=== PATIENT | female | born 1945 | race Caucasian/White ===

== ENCOUNTER 2018-03-30 06:18 | Inpatient (IN) | payer MEDICARE, BC ==
[2018-03-30] MEDS ORDERED: ALBUTEROL NEBULIZED 2.5 MG/3 ML INHALATION STA (07:07)
[2018-03-30] MEDS ORDERED: IPRATROPIUM 0.5 MG/2.5 ML NEBU INHALATION STA (07:07)
[2018-03-30] MEDS ORDERED: methylPREDNISolone SOD SUCCI 125 MG/2 ML VIAL IV STA (07:07)
[2018-03-30] MEDS ORDERED: LORazepam 2 MG/ML INJ IV STA ×2 (07:17→09:20)
[2018-03-30] MEDS ORDERED: LABETALOL SYRINGE 5 MG/ML IVP STA ×2 (07:17→09:02)
--- NOTE | 2018-03-30 07:36 | ED ---
General Adult HPI - General Source: patient, EMS, RN notes reviewed Mode of arrival: EMS Limitations: physical limitation <Jakub Gold - Last Filed: 03/30/18 09:20> <Augusto Green - Last Filed: 03/30/18 17:27> - General Chief complaint: Shortness of Breath Stated complaint: Difficulty Breathing Time Seen by Provider: 03/30/18 07:00 - History of Present Illness Initial comments: This is a 73-year-old female with past medical history significant for COPD. Patient states over the last week her sputum production has changed in color and she states it's a thicker greener sputum. Patient states she's been put on amoxicillin for this. Patient states her difficulty breathing is gotten worse since last night. Patient states she felt as though she needs to call EMS to come in because it got so bad this morning when she woke up. Patient states she had an albuterol treatment in route and it helped a lot. Patient denies any recent fever chills per patient denies any chest pain. Patient denies any abdominal pain patient denies nausea vomiting diarrhea. Patient denies lightheadedness dizziness or near syncopal episode. Patient denies any leg swelling or calf tenderness. (Jakub Gold) - Related Data Home Medications Medication Instructions Recorded Confirmed Metoprolol Tartrate [Lopressor] 25 mg PO BID 06/17/13 03/30/18 Montelukast [Singulair] 10 mg PO DAILY 06/17/13 03/30/18 Multivitamin [Multivitamins] 1 tab PO DAILY 06/17/13 03/30/18 ALPRAZolam [Xanax] 0.5 mg PO TID PRN 06/22/13 03/30/18 Naproxen Sodium [Aleve] 440 mg PO Q12HR 10/06/15 03/30/18 Amoxicillin 500 mg PO TID 03/30/18 03/30/18 Rosuvastatin [Crestor] 10 mg PO HS 03/30/18 03/30/18 Theophylline Anhydrous 400 mg PO DAILY 03/30/18 03/30/18 [Theophylline] methylPREDNISolone Dose Pack See Taper PO DAILY 03/30/18 03/30/18 [Medrol Dose Pack] Previous Rx's Medication Instructions Recorded Escitalopram [Lexapro] 10 mg PO DAILY tab 08/31/14 Acetaminophen Tab [Tylenol] 650 mg PO Q6HR PRN #0 tab 10/15/15 Allergies Allergy/AdvReac Type Severity Reaction Status Date / Time No Known Allergies Allergy Verified 03/30/18 08:37 Review of Systems ROS Other: All systems not noted in ROS Statement are negative. <Jakub Gold - Last Filed: 03/30/18 09:20> ROS Other: All systems not noted in ROS Statement are negative. <Augusto Green - Last Filed: 03/30/18 17:27> ROS Statement: Those systems with pertinent positive or pertinent negative responses have been documented in the HPI. Past Medical History Past Medical History: COPD, Hyperlipidemia, Hypertension, Respiratory Disorder Additional Past Medical History / Comment(s): Peripheral vascular disease, Raynaud's phenomena, chronic hyponatremia identified on previous hospitalization , chronic depression, chronic hypoxic respiratory failure on oxygen, generalized anxiety disorder History of Any Multi-Drug Resistant Organisms: None Reported Past Surgical History: Appendectomy, Tonsillectomy Additional Past Surgical History / Comment(s): Colonoscopy Past Anesthesia/Blood Transfusion Reactions: No Reported Reaction, Previous Problems w/ Anesthesia, Postoperative Nausea & Vomiting (PONV) Additional Past Anesthesia/Blood Transfusion Reaction / Comment(s): SLOW TO WAKE UP Past Psychological History: Anxiety, Depression Smoking Status: Former smoker Past Alcohol Use History: Abuse, Daily Past Drug Use History: Marijuana - Past Family History Father Family Medical History: Cancer Additional Family Medical History / Comment(s): Bladder cancer Mother Family Medical History: Congestive Heart Failure (CHF) Additional Family Medical History / Comment(s): Emphysema <Jakub Gold - Last Filed: 03/30/18 09:20> General Exam Limitations: physical limitation <Jakub Gold - Last Filed: 03/30/18 09:20> <Augusto Green - Last Filed: 03/30/18 17:27> - General Exam Comments Initial Comments: GENERAL: Patient is well-developed and well-nourished. Patient is nontoxic and well- hydrated and is in mild distress. ENT: Neck is soft and supple. No significant lymphadenopathy is noted. Oropharynx is clear. Moist mucous membranes. Neck has full range of motion without eliciting any pain. EYES: The sclera were anicteric and conjunctiva were pink and moist. Extraocular movements were intact and pupils were equal round and reactive to light. Eyelids were unremarkable. PULMONARY: Diminished breath sounds diffusely CARDIOVASCULAR: There is a regular rate and rhythm without any murmurs gallops or rubs. ABDOMEN: Soft and nontender with normal bowel sounds. No palpable organomegaly was noted. There is no palpable pulsatile mass. SKIN: Skin is clear with no lesions or rashes and otherwise unremarkable. NEUROLOGIC: Patient is alert and oriented x3. Cranial nerves II through XII are grossly intact. Motor and sensory are also intact. Normal speech, volume and content. Symmetrical smile. MUSCULOSKELETAL: Normal extremities with adequate strength and full range of motion. No lower extremity swelling or edema. No calf tenderness. LYMPHATICS: No significant lymphadenopathy is noted PSYCHIATRIC: Normal psychiatric evaluation. (Jakub Gold) Vital Signs 03/30/18 03/30/18 03/30/18 06:19 07:18 07:31 Temperature 99.1 F 98.6 F Pulse Rate 105 H 92 96 Respiratory 28 H 20 20 Rate Blood Pressure 212/111 195/105 O2 Sat by Pulse 96 100 Oximetry 03/30/18 03/30/18 03/30/18 08:06 09:01 10:00 Temperature Pulse Rate 98 100 92 Respiratory 22 20 18 Rate Blood Pressure 197/114 218/108 O2 Sat by Pulse 100 98 Oximetry 03/30/18 03/30/18 03/30/18 10:13 11:08 12:32 Temperature Pulse Rate 112 H 121 H Respiratory 18 24 Rate Blood Pressure 180/100 170/100 O2 Sat by Pulse 94 L Oximetry 03/30/18 03/30/18 03/30/18 12:33 12:46 13:06 Temperature Pulse Rate 121 H 123 H 126 H Respiratory 20 22 28 H Rate Blood Pressure 180/101 180/94 O2 Sat by Pulse 95 88 L Oximetry 03/30/18 03/30/18 03/30/18 13:40 14:06 14:47 Temperature Pulse Rate 124 H 126 H 130 H Respiratory 24 23 28 H Rate Blood Pressure 168/90 O2 Sat by Pulse 94 L Oximetry 03/30/18 03/30/18 03/30/18 15:29 15:45 16:30 Temperature Pulse Rate 130 H 126 H Respiratory 28 H 28 H Rate Blood Pressure 148/72 160/96 O2 Sat by Pulse 95 94 L 96 Oximetry Medical Decision Making - Lab Data Result diagrams: 03/30/18 06:25 03/30/18 06:25 <Jakub Gold - Last Filed: 03/30/18 09:20> - Lab Data Result diagrams: 03/30/18 06:25 03/30/18 06:25 <Augusto Green - Last Filed: 03/30/18 17:27> - Medical Decision Making EKG shows sinus tachycardia with occasional PVC at a rate of 102 bpm [place] interval 152 QRS is 68 QT interval 324 QTC is 424. Patient's EKG shows no ST segment elevation or depression or T wave abnormalities are noted. Patient received 3 breathing treatment to the emergency department as well as steroids and Ativan and also multiple medications for her high blood pressure. I went back into reexamine the patient she was still not moving much air. Patient at this point time told me that she also stopped drinking alcohol earlier in the week and she thinks she is withdrawing from lack of alcohol. I spoke with Dr. Piña and Dr. Piña agreed to admit the patient. (Jakub Gold ) Call received from Dr. Webber who states this patient sees Dr. Cunha and requests change of consultation. Dr. Mathis was called and he does request I make this change and it was so done. (Augusto Green) - Lab Data Lab Results 03/30/18 03/30/18 03/30/18 Range/Units 06:25 06:25 06:25 WBC 16.1 H (3.8-10.6) k/uL RBC 4.09 (3.80-5.40) m/uL Hgb 13.9 (11.4-16.0) gm/dL Hct 44.5 (34.0-46.0) % MCV 108.8 H (80.0-100.0) fL MCH 34.0 (25.0-35.0) pg MCHC 31.3 (31.0-37.0) g/dL RDW 12.9 (11.5-15.5) % Plt Count 376 (150-450) k/uL Neutrophils % 68 % Lymphocytes % 23 % Monocytes % 6 % Eosinophils % 1 % Basophils % 0 % Neutrophils # 11.0 H (1.3-7.7) k/uL Lymphocytes # 3.7 (1.0-4.8) k/uL Monocytes # 1.0 (0-1.0) k/uL Eosinophils # 0.1 (0-0.7) k/uL Basophils # 0.0 (0-0.2) k/uL Macrocytosis Moderate PT (9.0-12.0) sec INR (<1.2) APTT (22.0-30.0) sec Sodium 134 L (137-145) mmol/L Potassium 4.7 (3.5-5.1) mmol/L Chloride 90 L (98-107) mmol/L Carbon Dioxide 34 H (22-30) mmol/L Anion Gap 10 mmol/L BUN 20 H (7-17) mg/dL Creatinine 0.50 L (0.52-1.04) mg/dL Est GFR (CKD-EPI)AfAm >90 (>60 ml/min/1.73 sqM) Est GFR (CKD-EPI)NonAf >90 (>60 ml/min/1.73 sqM) Glucose 125 H (74-99) mg/dL Plasma Lactic Acid Jt (0.7-2.0) mmol/L Calcium 9.8 (8.4-10.2) mg/dL Total Bilirubin 0.8 (0.2-1.3) mg/dL AST 36 (14-36) U/L ALT 40 (9-52) U/L Alkaline Phosphatase 91 (38-126) U/L Total Creatine Kinase 23 L (30-135) U/L CK-MB (CK-2) 0.7 (0.0-2.4) ng/mL CK-MB (CK-2) Rel Index 3.0 Troponin I <0.012 (0.000-0.034) ng/mL NT-Pro-B Natriuret Pep pg/mL Total Protein 7.6 (6.3-8.2) g/dL Albumin 4.5 (3.5-5.0) g/dL 03/30/18 03/30/18 03/30/18 Range/Units 06:25 06:25 07:40 WBC (3.8-10.6) k/uL RBC (3.80-5.40) m/uL Hgb (11.4-16.0) gm/dL Hct (34.0-46.0) % MCV (80.0-100.0) fL MCH (25.0-35.0) pg MCHC (31.0-37.0) g/dL RDW (11.5-15.5) % Plt Count (150-450) k/uL Neutrophils % % Lymphocytes % % Monocytes % % Eosinophils % % Basophils % % Neutrophils # (1.3-7.7) k/uL Lymphocytes # (1.0-4.8) k/uL Monocytes # (0-1.0) k/uL Eosinophils # (0-0.7) k/uL Basophils # (0-0.2) k/uL Macrocytosis PT 9.5 (9.0-12.0) sec INR 0.9 (<1.2) APTT 22.2 (22.0-30.0) sec Sodium (137-145) mmol/L Potassium (3.5-5.1) mmol/L Chloride (98-107) mmol/L Carbon Dioxide (22-30) mmol/L Anion Gap mmol/L BUN (7-17) mg/dL Creatinine (0.52-1.04) mg/dL Est GFR (CKD-EPI)AfAm (>60 ml/min/1.73 sqM) Est GFR (CKD-EPI)NonAf (>60 ml/min/1.73 sqM) Glucose (74-99) mg/dL Plasma Lactic Acid Jt 0.8 (0.7-2.0) mmol/L Calcium (8.4-10.2) mg/dL Total Bilirubin (0.2-1.3) mg/dL AST (14-36) U/L ALT (9-52) U/L Alkaline Phosphatase (38-126) U/L Total Creatine Kinase (30-135) U/L CK-MB (CK-2) (0.0-2.4) ng/mL CK-MB (CK-2) Rel Index Troponin I (0.000-0.034) ng/mL NT-Pro-B Natriuret Pep 164 pg/mL Total Protein (6.3-8.2) g/dL Albumin (3.5-5.0) g/dL Critical Care Time Critical Care Time: Yes Total Critical Care Time: 35 <Jakub Gold - Last Filed: 03/30/18 09:20> Disposition Time of Disposition: 09:22 <Jakub Gold - Last Filed: 03/30/18 09:20> <Augusto Green - Last Filed: 03/30/18 17:27> Clinical Impression: Hypertensive urgency, COPD exacerbation, Bronchitis, Alcohol withdrawal Disposition: ADMITTED IP TO THIS HOSP
[2018-03-30 07:52] LABS: Basophils % (A) 0 %; Eosinophils # (A) 0.1 k/uL (0-0.7); Eosinophils % (A) 1 %; HCT 44.5 % (34.0-46.0); HGB 13.9 gm/dL (11.4-16.0); Lymphocytes # (A) 3.7 k/uL (1.0-4.8); Lymphocytes % (A) 23 %; MCHC 31.3 g/dL (31.0-37.0); MCV 108.8 fL (80.0-100.0); Macrocytosis Moderate; Mean Platelet Volume 8.1; Monocytes % (A) 6 %; Neutrophils % (A) 68 %; Platelet Count 376 k/uL (150-450); RBC 4.09 m/uL (3.80-5.40); RDW 12.9 % (11.5-15.5); WBC 16.1 k/uL (3.8-10.6)
[2018-03-30 08:01] LABS: ALT 40 U/L (9-52); AST 36 U/L (14-36); Albumin 4.5 g/dL (3.5-5.0); Alkaline Phosphatase 91 U/L (38-126); Anion Gap 10 mmol/L; Blood Urea Nitrogen 20 mg/dL (7-17); Calcium 9.8 mg/dL (8.4-10.2); Carbon Dioxide 34 mmol/L (22-30); Chloride 90 mmol/L (98-107); Glucose 125 mg/dL (74-99); Potassium 4.7 mmol/L (3.5-5.1); Sodium 134 mmol/L (137-145); Total Bilirubin 0.8 mg/dL (0.2-1.3); Total Protein 7.6 g/dL (6.3-8.2)
[2018-03-30 08:08] LABS: INR 0.9 (<1.2); Partial Thromboplastin Time 22.2 sec (22.0-30.0); Prothrombin Time 9.5 sec (9.0-12.0)
[2018-03-30 08:26] LABS: Creatine Kinase 23 U/L (30-135)
[2018-03-30 08:37] LABS: Creatine Kinase MB 0.7 ng/mL (0.0-2.4); Troponin I <0.012 ng/mL (0.000-0.034)
--- NOTE | 2018-03-30 08:37 | XR ---
EXAMINATION TYPE: XR chest 2V DATE OF EXAM: 03/30/2018 COMPARISON: 10/14/2015 INDICATION: Difficulty breathing TECHNIQUE: Frontal and lateral views of the chest are obtained. FINDINGS: The heart size is normal. The pulmonary vasculature is normal. The lungs are clear. There is hyperinflation and increased retrosternal airspace compatible COPD IMPRESSION: 1. No acute pulmonary process. 2. COPD
[2018-03-30] MEDS ORDERED: LABETALOL 5 MG/ML VIAL MDV IVP STA (09:02)
[2018-03-30] MEDS ORDERED: hydrALAZINE HCL 20 MG/ML 1 ML VIAL IVP STA ×2 (09:20→11:20)
[2018-03-30] MEDS ORDERED: LORazepam 2 MG/ML INJ IV PRN ×2 (09:24)
[2018-03-30] MEDS ORDERED: THIAMINE 100 MG/ML 2 ML VIAL IM STA (09:24)
[2018-03-30] MEDS ORDERED: AZITHROMYCIN 500 MG in SODIUM CHLORIDE 0.9% 250 ML IVPB STA (09:28)
[2018-03-30] MEDS: methylPREDNISolone SOD SUCCI 125 MG/2 ML VIAL IV SCH ×2 (12:29→20:17)
[2018-03-30] MEDS: LORazepam 2 MG/ML INJ IV PRN ×2 (12:31→21:51)
[2018-03-30] MEDS ORDERED: ACETAMINOPHEN TAB 325 MG TAB PO PRN (13:00)
[2018-03-30] MEDS ORDERED: hydrALAZINE HCL 20 MG/ML 1 ML VIAL IVP PRN (13:06)
--- NOTE | 2018-03-30 13:06 | P.HPIM ---
History of Present Illness H&P Date: 03/30/18 Chief Complaint: Shortness of breath 73-year-old female with past medical history significant for COPD. Patient states over the last week her sputum production has changed in color and she states it's a thicker greener sputum. Patient states she's been put on amoxicillin for this. Patient states her difficulty breathing is gotten worse since last night. Patient states she felt as though she needs to call EMS to come in because it got so bad this morning when she woke up. Patient states she had an albuterol treatment in route and it helped a lot. Patient denies any recent fever chills per patient denies any chest pain. Patient denies any abdominal pain patient denies nausea vomiting diarrhea. Patient denies lightheadedness dizziness or near syncopal episode. Patient denies any leg swelling or calf tenderness. Review of Systems Constitutional: Reports fatigue, Denies chills, Denies fever Eyes: denies blurred vision, denies loss of vision Ears, nose, mouth and throat: Denies headache, Denies nasal congestion Cardiovascular: Reports shortness of breath, Denies chest pain, Denies lightheadedness, Denies rapid heart beat Respiratory: Reports cough with sputum, Reports dyspnea, Reports wheezing, Denies hemoptysis Gastrointestinal: Denies abdominal pain, Denies nausea, Denies vomiting Genitourinary: Denies dysuria, Denies hematuria Integumentary: Denies darkening of skin, Denies rash Neurological: Denies confusion, Denies double vision Endocrine: Denies cold intolerance, Denies heat intolerance Past Medical History Past Medical History: COPD, Hyperlipidemia, Hypertension, Respiratory Disorder Additional Past Medical History / Comment(s): Peripheral vascular disease, Raynaud's phenomena, chronic hyponatremia identified on previous hospitalization , chronic depression, chronic hypoxic respiratory failure on oxygen, generalized anxiety disorder History of Any Multi-Drug Resistant Organisms: None Reported Past Surgical History: Appendectomy, Tonsillectomy Additional Past Surgical History / Comment(s): Colonoscopy Past Anesthesia/Blood Transfusion Reactions: No Reported Reaction, Previous Problems w/ Anesthesia, Postoperative Nausea & Vomiting (PONV) Additional Past Anesthesia/Blood Transfusion Reaction / Comment(s): SLOW TO WAKE UP Past Psychological History: Anxiety, Depression Smoking Status: Former smoker Past Alcohol Use History: Abuse, Daily Past Drug Use History: Marijuana - Past Family History Father Family Medical History: Cancer Additional Family Medical History / Comment(s): Bladder cancer Mother Family Medical History: Congestive Heart Failure (CHF) Additional Family Medical History / Comment(s): Emphysema Medications and Allergies Home Medications Medication Instructions Recorded Confirmed Type Metoprolol Tartrate [Lopressor] 25 mg PO BID 06/17/13 03/30/18 History Montelukast [Singulair] 10 mg PO DAILY 06/17/13 03/30/18 History Multivitamin [Multivitamins] 1 tab PO DAILY 06/17/13 03/30/18 History ALPRAZolam [Xanax] 0.5 mg PO TID PRN 06/22/13 03/30/18 History Escitalopram [Lexapro] 10 mg PO DAILY tab 08/31/14 03/30/18 Rx Naproxen Sodium [Aleve] 440 mg PO Q12HR 10/06/15 03/30/18 History Acetaminophen Tab [Tylenol] 650 mg PO Q6HR PRN #0 tab 10/15/15 03/30/18 Rx Amoxicillin 500 mg PO TID 03/30/18 03/30/18 History Rosuvastatin [Crestor] 10 mg PO HS 03/30/18 03/30/18 History Theophylline Anhydrous 400 mg PO DAILY 03/30/18 03/30/18 History [Theophylline] methylPREDNISolone Dose Pack See Taper PO DAILY 03/30/18 03/30/18 History [Medrol Dose Pack] Allergies Allergy/AdvReac Type Severity Reaction Status Date / Time No Known Allergies Allergy Verified 03/30/18 08:37 Physical Exam Vitals: Vital Signs Temp Pulse Resp BP Pulse Ox 03/30/18 12:46 123 H 22 03/30/18 12:33 121 H 20 180/101 95 03/30/18 12:32 121 H 24 03/30/18 11:08 112 H 18 170/100 94 L 03/30/18 10:13 180/100 03/30/18 10:00 92 18 218/108 98 03/30/18 09:01 100 20 197/114 100 03/30/18 08:06 98 22 03/30/18 07:31 96 20 03/30/18 07:18 98.6 F 92 20 195/105 100 03/30/18 06:19 99.1 F 105 H 28 H 212/111 96 Intake and Output 03/29/18 03/30/18 03/30/18 22:59 06:59 14:59 Other: Weight 74.843 kg GENERAL: Patient is well-developed and well-nourished. Patient is nontoxic and well- hydrated and is in mild distress. ENT: Neck is soft and supple. No significant lymphadenopathy is noted. Oropharynx is clear. Moist mucous membranes. Neck has full range of motion without eliciting any pain. EYES: The sclera were anicteric and conjunctiva were pink and moist. Extraocular movements were intact and pupils were equal round and reactive to light. Eyelids were unremarkable. PULMONARY: Diminished breath sounds diffusely CARDIOVASCULAR: There is a regular rate and rhythm without any murmurs gallops or rubs. ABDOMEN: Soft and nontender with normal bowel sounds. No palpable organomegaly was noted. There is no palpable pulsatile mass. SKIN: Skin is clear with no lesions or rashes and otherwise unremarkable. NEUROLOGIC: Patient is alert and oriented x3. Cranial nerves II through XII are grossly intact. Motor and sensory are also intact. Normal speech, volume and content. Symmetrical smile. MUSCULOSKELETAL: Normal extremities with adequate strength and full range of motion. No lower extremity swelling or edema. No calf tenderness. LYMPHATICS: No significant lymphadenopathy is noted Results CBC & Chem 7: 03/30/18 06:25 03/30/18 06:25 Labs: Abnormal Lab Results - Last 24 Hours (Table) 03/30/18 03/30/18 03/30/18 Range/Units 06:25 06:25 06:25 WBC 16.1 H (3.8-10.6) k/uL MCV 108.8 H (80.0-100.0) fL Neutrophils # 11.0 H (1.3-7.7) k/uL Sodium 134 L (137-145) mmol/L Chloride 90 L (98-107) mmol/L Carbon Dioxide 34 H (22-30) mmol/L BUN 20 H (7-17) mg/dL Creatinine 0.50 L (0.52-1.04) mg/dL Glucose 125 H (74-99) mg/dL Total Creatine Kinase 23 L (30-135) U/L Assessment and Plan Assessment: 1. Hypertensive urgency; possibly secondary to EtOH withdrawal - we will continue with home dose of Norvasc 5 mg daily and Toprol 25 mg twice a day - Add hydralazine 10 mg IV every 6 hours when necessary for systolic blood pressure greater than 160 2. COPD exacerbation/bronchitis - Start patient on Zithromax 500 mg by mouth daily along with ceftriaxone 1 g daily - Solu-Medrol 60 mg IV every 6 hours - Bronchodilator nebulizer treatments with DuoNeb every 4 hours when necessary - Continue with home dose of Singulair 10 mg daily along with theophylline 400 mg every 24 hours 3. Alcohol withdrawal - Patient is started on Ativan per [facility] protocol - Consult [employer] for discharge planning 4. Leukocytosis; possibly stress related - We will repeat CBC in the and initiate sepsis workup if remains elevated 5. Hyperlipidemia; reorder home dose of Crestor 10 mg daily at bedtime 6. DVT prophylaxis; subcu heparin CODE STATUS; full code
[2018-03-30] MEDS: IPRATROPIUM-ALBUTEROL 3 ML NEB INHALATION PRN ×2 (13:30→19:55)
[2018-03-30] MEDS ORDERED: BUDESONIDE 1 MG/2 ML NEBU INHALATION STA (13:37)
[2018-03-30] MEDS ORDERED: KETOROLAC 30 MG/ML 1 ML VIAL IVP PRN (14:25)
[2018-03-30 14:33] LABS: ABG Base Excess 7.7 mmol/L; ABG HCO3 34 mmol/L (21-25); ABG Oxygen Saturation 95.4 % (94-97); ABG PH 7.29 (7.35-7.45); ABG PO2 84 mmHg (83-108); ABG TCO2 37 mmol/L (19-24)
[2018-03-30 14:39] LABS: ABG PCO2 71 mmHg (35-45)
[2018-03-30] MEDS: PANTOPRAZOLE 40 MG/10 ML VIAL IVP SCH (14:43)
--- NOTE | 2018-03-30 18:13 | P.CNPUL ---
History of Present Illness Consult date: 03/30/18 Reason for consult: dyspnea, COPD History of present illness: This is a 73-year-old female patient who follows with Dr. Way as her primary care physician. She has a past medical history of chronic hypoxic respiratory failure requiring oxygen 10/09, chronic obstructive pulmonary disease, end-stage with an FEV1 value of 15% , hypertension, anxiety/depression, immunoglobulin deficiency with previous IVIG treatments, peripheral vascular disease, renal disease. This patient has a maintained on oxygen on a chronic basis, Milligrams of Prednisone a Daily Basis, Theophylline 400 Mg on a Daily Basis and She's Been Utilizing a BiPAP Device on and off for Chronic Dyspnea on Respiratory Failure. She Was Getting Progressively More Short of Breath Approximately Week Ago. She Contacted Our Office and She Was was given a course of amoxicillin. Nevertheless, she got worse and she end up coming to the hospital for acute respiratory failure. The patient was immediately placed on a BiPAP which is currently running at a pressure of 14/7 cm of water. She is also on FiO2 of 35%. Upon arrival to the emergency department, the patient was also noted to be hypertensive. Her initial blood pressure was 200/111. She was given labetalol and hydralazine IV and the most recent blood pressure is down to 160/96. She is a chronic alcohol drinker. She drinks beer and she takes 2 shots of whiskey on a daily basis. No clear signs of delirium tremens although she looks a bit tremulous along with increased shortness of breath. She is currently tolerating the BiPAP. Her blood gases showed a pH of 7.29 with a pCO2 of 71 and pO2 of 84 on the above-mentioned BiPAP setting. Chest x- ray shows hyperinflation. With regards at 16.1. EKG showing sinus tachycardia. There is evidence of biatrial enlargement. Right ventricle hypertrophy is also seen along with an old septal infarct as of daily basis. Review of Systems Constitutional: Reports daytime sleepiness, Reports fatigue, Reports lethargy, Reports weakness Eyes: denies as per HPI, denies blurred vision, denies bulging eye, denies decreased vision, denies diplopia, denies discharge, denies dry eye, denies irritation, denies itching, denies pain, denies photophobia, denies loss of peripheral vision, denies loss of vision, denies tunnel vision/blind spots Ears: deny: decreased hearing, ear discharge, earache, tinnitus Ears, nose, mouth and throat: Reports as per HPI Breasts: absent: as per HPI, change in shape, gynecomastia, masses, nipple discharge, pain, skin changes, swelling Cardiovascular: Reports decreased exercise tolerance, Reports dyspnea on exertion, Reports shortness of breath Respiratory: Reports cough, Reports cough with sputum, Reports dyspnea, Reports wheezing Gastrointestinal: Denies abdominal pain, Denies diarrhea, Denies nausea, Denies vomiting Genitourinary: Reports as per HPI Menstruation: Reports as per HPI Musculoskeletal: Reports as per HPI Musculoskeletal: absent: ankle pain, ankle stiffness, ankle swelling, as per HPI , elbow pain, elbow stiffness, elbow swelling, foot pain, foot stiffness, foot swelling, hand pain, hand stiffness, hand swelling, hip pain, hip stiffness, hip swelling, knee pain, knee stiffness, knee swelling, shoulder pain, shoulder stiffness, shoulder swelling, wrist pain, wrist stiffness, wrist swelling Integumentary: Reports as per HPI, Reports wounds Neurological: Reports as per HPI Psychiatric: Reports as per HPI Endocrine: Reports as per HPI Hematologic/Lymphatic: Reports as per HPI Allergic/Immunologic: Reports as per HPI Past Medical History Past Medical History: COPD, Hyperlipidemia, Hypertension, Respiratory Disorder Additional Past Medical History / Comment(s): Severe COPD with an FEV1 of 15%, chronic hypoxic respiratory failure, alcoholism, Peripheral vascular disease, Raynaud's phenomena, previous history of hyponatremia identified on previous hospitalization, chronic depression, chronic hypoxic respiratory failure on oxygen, generalized anxiety disorder History of Any Multi-Drug Resistant Organisms: None Reported Past Surgical History: Appendectomy, Tonsillectomy Additional Past Surgical History / Comment(s): Colonoscopy Past Anesthesia/Blood Transfusion Reactions: No Reported Reaction, Previous Problems w/ Anesthesia, Postoperative Nausea & Vomiting (PONV) Additional Past Anesthesia/Blood Transfusion Reaction / Comment(s): SLOW TO WAKE UP Past Psychological History: Anxiety, Depression Smoking Status: Former smoker Past Alcohol Use History: Abuse, Daily Past Drug Use History: Marijuana - Past Family History Father Family Medical History: Cancer Additional Family Medical History / Comment(s): Bladder cancer Mother Family Medical History: Congestive Heart Failure (CHF) Additional Family Medical History / Comment(s): Emphysema Medications and Allergies Home Medications Medication Instructions Recorded Confirmed Type Metoprolol Tartrate [Lopressor] 25 mg PO BID 06/17/13 03/30/18 History Montelukast [Singulair] 10 mg PO DAILY 06/17/13 03/30/18 History Multivitamin [Multivitamins] 1 tab PO DAILY 06/17/13 03/30/18 History ALPRAZolam [Xanax] 0.5 mg PO TID PRN 06/22/13 03/30/18 History Escitalopram [Lexapro] 10 mg PO DAILY tab 08/31/14 03/30/18 Rx Naproxen Sodium [Aleve] 440 mg PO Q12HR 10/06/15 03/30/18 History Acetaminophen Tab [Tylenol] 650 mg PO Q6HR PRN #0 tab 10/15/15 03/30/18 Rx Amoxicillin 500 mg PO TID 03/30/18 03/30/18 History Rosuvastatin [Crestor] 10 mg PO HS 03/30/18 03/30/18 History Theophylline Anhydrous 400 mg PO DAILY 03/30/18 03/30/18 History [Theophylline] methylPREDNISolone Dose Pack See Taper PO DAILY 03/30/18 03/30/18 History [Medrol Dose Pack] Allergies Allergy/AdvReac Type Severity Reaction Status Date / Time No Known Allergies Allergy Verified 03/30/18 08:37 Physical Exam Vitals: Vital Signs Temp Pulse Resp BP Pulse Ox 03/30/18 17:52 115 H 28 H 160/100 96 03/30/18 16:30 126 H 28 H 160/96 96 03/30/18 15:45 94 L 03/30/18 15:29 130 H 28 H 148/72 95 03/30/18 14:47 130 H 28 H 168/90 94 L 03/30/18 14:06 126 H 23 03/30/18 13:40 124 H 24 03/30/18 13:06 126 H 28 H 180/94 88 L 03/30/18 12:46 123 H 22 03/30/18 12:33 121 H 20 180/101 95 03/30/18 12:32 121 H 24 03/30/18 11:08 112 H 18 170/100 94 L 03/30/18 10:13 180/100 03/30/18 10:00 92 18 218/108 98 03/30/18 09:01 100 20 197/114 100 03/30/18 08:06 98 22 03/30/18 07:31 96 20 03/30/18 07:18 98.6 F 92 20 195/105 100 03/30/18 06:19 99.1 F 105 H 28 H 212/111 96 Intake and Output 03/30/18 03/30/18 03/30/18 06:59 14:59 22:59 Other: Weight 74.843 kg Thin cachectic elderly female patient in mild degree of respiratory distress even while being on the BiPAP machine. The patient is synchronous with the mechanical ventilator for now. Head exam was generally normal. There was no scleral icterus or corneal arcus. Mucous membranes were moist. Neck was supple and without jugular venous distension, thyromegaly, or carotid bruits. Carotids were easily palpable bilaterally. There was no adenopathy. Lungs sounds are diminished bilaterally along with diffuse expiratory wheezes throughout the lung his bilaterally and prolongation of expiratory phase of breathing. Heart sounds are regular to tachycardic.Cardiac exam revealed the PMI to be normally situated and sized. The rhythm was regular and no extrasystoles were noted during several minutes of auscultation. The first and second heart sounds were normal and physiologic splitting of the second heart sound was noted. There were no murmurs, rubs, clicks, or gallops. Abdominal exam revealed normal bowel sounds. The abdomen was soft, non-tender, and without masses, organomegaly, or appreciable enlargement of the abdominal aorta. Extremities shows a superficial tear skin tear in the left lower extremity. Trace edema and there is no signs of clubbing. Neurologic awake and alert there is no focal neurological deficits. Results - Laboratory Findings CBC and BMP: 03/30/18 06:25 03/30/18 06:25 ABG ABG pH 7.29 (7.35-7.45) L 03/30/18 14:29 ABG pCO2 71 mmHg (35-45) H* 03/30/18 14:29 ABG pO2 84 mmHg (83-108) 03/30/18 14:29 ABG O2 Saturation 95.4 % (94-97) 03/30/18 14:29 PT/INR, D-dimer PT 9.5 sec (9.0-12.0) 03/30/18 06:25 INR 0.9 (<1.2) 03/30/18 06:25 Abnormal lab findings: Abnormal Labs 03/30/18 03/30/18 03/30/18 06:25 06:25 06:25 WBC 16.1 H MCV 108.8 H Neutrophils # 11.0 H ABG pH ABG pCO2 ABG HCO3 ABG Total CO2 Sodium 134 L Chloride 90 L Carbon Dioxide 34 H BUN 20 H Creatinine 0.50 L Glucose 125 H Total Creatine Kinase 23 L 03/30/18 14:29 WBC MCV Neutrophils # ABG pH 7.29 L ABG pCO2 71 H* ABG HCO3 34 H ABG Total CO2 37 H Sodium Chloride Carbon Dioxide BUN Creatinine Glucose Total Creatine Kinase - Diagnostic Findings Chest x-ray: image reviewed Assessment and Plan Plan: Assessment 1 acute COPD exacerbation with respiratory failure. The patient is currently on BiPAP for acute on top of chronic hypercapnic and hypoxic respiratory failure. Currently on a BiPAP pressure of 14/7 cm of water and FiO2 of 35%. Chest x-ray showed no evidence of an acute pneumonia 2 chronic hypoxic respiratory failure 3 acute on top of chronic hypercapnic respiratory failure 4 sinus tachycardia 5 acute hypertensive urgency, blood pressure control is improving. This is partly related to her respiratory distress. 6 chronic alcoholism 7 CVA COPD at baseline with an FEV1 of less than 15% of predicted 8 peripheral vascular disease 9 chronic anxiety 10 debilitated condition and the patient has been chronic steroid dependence and the dose of 10 mg of prednisone a daily basis Plan This patient is critically ill. She is in respiratory failure which is BiPAP dependent. She will moved to the intensive care unit. Her CODE STATUS is DNR/ DNI. She has already provided paperwork confirming her CODE STATUS. Would optimize her respiratory status with use of bronchodilators and steroids and antibiotics. We'll continue the IV Solu Medrol. Continue theophylline. Ativan for anxiety and early signs of delirium tremens. Condition is critical. High-risk for going into full-blown respiratory failure. monitor blood pressure. We'll continue to follow. Prognosis poor.
[2018-03-30] MEDS: BUDESONIDE 1 MG/2 ML NEBU INHALATION SCH (19:56)
[2018-03-30] MEDS ORDERED: NAPROXEN 250 MG TAB PO SCH (21:00)
[2018-03-30 21:07] LABS: Glucose,Whole Blood 165 mg/dL (75-99)
[2018-03-30 21:51] LABS: Appearance,Urine Clear (Clear); Bacteria,Urine Rare /hpf; Bilirubin,Urine Negative (Negative); Blood,Urine Negative (Negative); Color,Urine Yellow; Glucose,Urine (UA) 3+ (Negative); Ketones,Urine 1+ (Negative); Leukocyte Esterase,Urine Negative (Negative); Mucus,Urine Many /hpf; Nitrite,Urine Negative (Negative); Protein,Urine 2+ (Negative); Specific Gravity,Urine 1.022 (1.001-1.035); Urobilinogen,Urine <2.0 mg/dL (<2.0); WBC,Urine 5 /hpf (0-5)
[2018-03-30] MEDS: MONTELUKAST 10 MG TAB PO SCH (22:23)
[2018-03-30] MEDS: THIAMINE 100 MG TAB PO SCH (22:23)
[2018-03-30] MEDS: CLEVIDIPINE BUTYRATE 25 MG in EMPTY BAG 1 BAG IV SCH (22:29)
[2018-03-31 00:12] VITALS: BP 165/89
[2018-03-31] MEDS: HEPARIN SODIUM,PORCINE 5,000 UNIT/ML 1 ML VIAL SQ SCH ×3 (00:13→21:04)
[2018-03-31] MEDS: ATORVASTATIN 20 MG TAB PO SCH ×2 (00:13→21:03)
[2018-03-31] MEDS: methylPREDNISolone SOD SUCCI 125 MG/2 ML VIAL IV SCH ×4 (00:29→18:29)
[2018-03-31] MEDS: METOPROLOL TARTRATE 25 MG TAB PO SCH ×3 (00:29→21:03)
[2018-03-31] MEDS: CLEVIDIPINE BUTYRATE 25 MG in EMPTY BAG 1 BAG IV SCH ×3 (02:12→19:00)
[2018-03-31] MEDS ORDERED: NALOXONE 0.4 MG/ML 1 ML VIAL IV PRN (03:28)
[2018-03-31 04:24] LABS: Basophils % (A) 0 %; Eosinophils % (A) 0 %; HCT 37.9 % (34.0-46.0); HGB 11.9 gm/dL (11.4-16.0); Lymphocytes # (A) 0.5 k/uL (1.0-4.8); Lymphocytes % (A) 3 %; MCHC 31.5 g/dL (31.0-37.0); Macrocytosis Marked; Mean Platelet Volume 7.1; Monocytes # (A) 0.7 k/uL (0-1.0); Monocytes % (A) 4 %; Neutrophils # (A) 15.9 k/uL (1.3-7.7); Neutrophils % (A) 93 %; Platelet Count 295 k/uL (150-450); RBC 3.41 m/uL (3.80-5.40); WBC 17.2 k/uL (3.8-10.6)
[2018-03-31 04:39] LABS: Anion Gap 5 mmol/L; Blood Urea Nitrogen 35 mg/dL (7-17); Calcium 9.6 mg/dL (8.4-10.2); Carbon Dioxide 32 mmol/L (22-30); Chloride 95 mmol/L (98-107); Glucose 160 mg/dL (74-99); Magnesium 2.2 mg/dL (1.6-2.3); Phosphorus 4.4 mg/dL (2.5-4.5); Potassium 4.7 mmol/L (3.5-5.1); Sodium 132 mmol/L (137-145)
[2018-03-31] MEDS: SODIUM CHLORIDE 0.9% 1,000 ML IV SCH ×2 (05:05→18:46)
[2018-03-31] MEDS: LORazepam 2 MG/ML INJ IV PRN ×4 (05:17→22:19)
[2018-03-31 05:28] VITALS: BMI 26.2
[2018-03-31 06:17] LABS: Glucose,Whole Blood 155 mg/dL (75-99)
[2018-03-31] MEDS: INSULIN ASPART (NovoLOG) 100 UNIT/ML VIAL SQ SCH ×3 (06:22→18:30)
[2018-03-31] MEDS: BUDESONIDE 1 MG/2 ML NEBU INHALATION SCH ×2 (07:17→19:14)
[2018-03-31] MEDS: IPRATROPIUM-ALBUTEROL 3 ML NEB INHALATION PRN ×4 (07:17→19:14)
--- NOTE | 2018-03-31 08:17 | XR ---
EXAMINATION TYPE: XR chest 1V DATE OF EXAM: 03/31/2018 COMPARISON: Prior chest x-ray 03/30/2018 HISTORY: COPD and respiratory distress TECHNIQUE: Single frontal view of the chest is obtained. FINDINGS: Prominent lung volumes suggests underlying COPD. No evident airspace disease, pneumothorax , or pleural effusion. Cardiac mediastinal silhouette, pulmonary vascularity and angela are not changed . There are cardiac leads. IMPRESSION: No acute process.
[2018-03-31] MEDS ORDERED: amLODIPine 5 MG TAB PO SCH (09:00)
[2018-03-31] MEDS: amLODIPine 5 MG TAB PO SCH ×2 (09:22→21:03)
[2018-03-31] MEDS: MONTELUKAST 10 MG TAB PO SCH (09:22)
[2018-03-31] MEDS: AZITHROMYCIN 500 MG TAB PO SCH ×2 (09:31→12:39)
[2018-03-31] MEDS: ESCITALOPRAM 10 MG TAB PO SCH ×3 (09:31→12:40)
[2018-03-31] MEDS: THEOPHYLLINE 24 HOUR 400 MG CAP.ER.24H PO SCH (09:31)
[2018-03-31] MEDS: PANTOPRAZOLE 40 MG/10 ML VIAL IVP SCH (09:36)
--- NOTE | 2018-03-31 11:57 | P.PN ---
Subjective Progress Note Date: 03/31/18 Principal diagnosis: Acute hypoxic and hypercapnic respiratory failure secondary to acute exacerbation of COPD. This is a 73-year-old female patient who follows with Dr. Way as her primary care physician. She has a past medical history of chronic hypoxic respiratory failure requiring oxygen /, chronic obstructive pulmonary disease, end-stage with an FEV1 value of 15% , hypertension, anxiety/depression, immunoglobulin deficiency with previous IVIG treatments, peripheral vascular disease, renal disease. This patient has a maintained on oxygen on a chronic basis, Milligrams of Prednisone a Daily Basis, Theophylline 400 Mg on a Daily Basis and She's Been Utilizing a BiPAP Device on and off for Chronic Dyspnea on Respiratory Failure. She Was Getting Progressively More Short of Breath Approximately Week Ago. She Contacted Our Office and She Was was given a course of amoxicillin. Nevertheless, she got worse and she end up coming to the hospital for acute respiratory failure. The patient was immediately placed on a BiPAP which is currently running at a pressure of 14/7 cm of water. She is also on FiO2 of 35%. Upon arrival to the emergency department, the patient was also noted to be hypertensive. Her initial blood pressure was 200/111. She was given labetalol and hydralazine IV and the most recent blood pressure is down to 160/96. She is a chronic alcohol drinker. She drinks beer and she takes 2 shots of whiskey on a daily basis. No clear signs of delirium tremens although she looks a bit tremulous along with increased shortness of breath. She is currently tolerating the BiPAP. Her blood gases showed a pH of 7.29 with a pCO2 of 71 and pO2 of 84 on the above-mentioned BiPAP setting. Chest x- ray shows hyperinflation. With regards at 16.1. EKG showing sinus tachycardia. There is evidence of biatrial enlargement. Right ventricle hypertrophy is also seen along with an old septal infarct as of daily basis. Patient was reevaluated today on 03/31/2018, remains in the ICU, remains on BiPAP with IPAP of 14 and EPAP of 7. Patient remains on bronchodilators, antibiotics, she is also on clevidipine drip at 4 mg per hour for elevated blood pressure. Feeling better, breathing easier. Less cough and less wheezing less shortness of breath. Labs were reviewed she has leukocytosis with WBC count of 17.2 hemoglobin is 11.9. Electrolytes are relatively normal BUN is 35 creatinine 0.53. Chest x-ray was reviewed and there is no evidence of infiltrate. Medications were reviewed, remains on Rocephin and Zithromax, she is on bronchodilators/DuoNeb, which is also on Pulmicort, overall, the patient is feeling better compared to how she felt upon presentation Objective - Vital Signs Vital signs: Vital Signs Temp 97.6 F 03/31/18 04:00 Pulse 84 03/31/18 11:33 Resp 54 H 03/31/18 07:00 BP 165/89 03/31/18 03:00 Pulse Ox 97 03/31/18 07:00 Intake & Output 03/30/18 03/31/18 03/31/18 18:59 06:59 18:59 Intake Total 297.401 300 Output Total 383 200 Balance -85.599 100 Weight 69.4 kg Intake: IV 222 300 .09 normal saline carrier 72 Sodium Chloride 0.9% 1, 150 300 000 ml @ 75 mls/hr IV . [id number] [facility]AN[facility]LO Rx#:[id number] Intake, IV Titration 75.401 Amount Clevidipine Butyrate 25 75.401 mg In Empty Bag 1 bag @ 1 MG/HR 2 mls/hr IV .Q24H [facility]UANP[facility]LO Rx#:[id number] Output: Urine 383 200 Other: Voiding Method Indwelling Catheter ABP, PAP, CO, CI - Last Documented Arterial Blood Pressure 142/65 - Exam Physical Exam: Revealed a 73-year-old female frail, ill looking, on BiPAP in no distress. Head: Atraumatic normocephalic. HEENT:[Neck is supple.] [No neck masses.] [No thyromegaly.] [No JVD.] Dry mucous membranes were noted. PERRLA, EOMI, no icterus. Chest: [Diminished breath sound bilaterally, rhonchi and wheezes noted also bilaterally.] Cardiac Exam: [Normal S1 and S2, no S3 gallop, no murmur.] Abdomen: [Soft, nontender, no megaly, no rebound, no guarding, normal bowel sounds.] Extremities: [No clubbing, no edema, no cyanosis.] Neurological Exam: [No focal neurologic deficit.] Skin: No rashes, however the skin is noted to be quite dry. And superficial tumors and 80s of ecchymosis noted in both forearms. Psychiatric: Normal mood, affect and mental status examination. - Labs CBC & Chem 7: 03/31/18 03:55 03/31/18 03:55 Labs: Abnormal Lab Results - Last 24 Hours (Table) 03/30/18 03/30/18 03/30/18 Range/Units 14:29 21:06 21:20 WBC (3.8-10.6) k/uL RBC (3.80-5.40) m/uL MCV (80.0-100.0) fL Neutrophils # (1.3-7.7) k/uL Lymphocytes # (1.0-4.8) k/uL ABG pH 7.29 L (7.35-7.45) ABG pCO2 71 H* (35-45) mmHg ABG HCO3 34 H (21-25) mmol/L ABG Total CO2 37 H (19-24) mmol/L Sodium (137-145) mmol/L Chloride (98-107) mmol/L Carbon Dioxide (22-30) mmol/L BUN (7-17) mg/dL Glucose (74-99) mg/dL POC Glucose (mg/dL) 165 H (75-99) mg/dL Urine Protein 2+ H (Negative) Urine Glucose (UA) 3+ H (Negative) Urine Ketones 1+ H (Negative) Urine Bacteria Rare H (None) /hpf Urine Mucus Many H (None) /hpf 03/31/18 03/31/18 03/31/18 Range/Units 03:55 03:55 06:15 WBC 17.2 H (3.8-10.6) k/uL RBC 3.41 L (3.80-5.40) m/uL MCV 111.0 H (80.0-100.0) fL Neutrophils # 15.9 H (1.3-7.7) k/uL Lymphocytes # 0.5 L (1.0-4.8) k/uL ABG pH (7.35-7.45) ABG pCO2 (35-45) mmHg ABG HCO3 (21-25) mmol/L ABG Total CO2 (19-24) mmol/L Sodium 132 L (137-145) mmol/L Chloride 95 L (98-107) mmol/L Carbon Dioxide 32 H (22-30) mmol/L BUN 35 H (7-17) mg/dL Glucose 160 H (74-99) mg/dL POC Glucose (mg/dL) 155 H (75-99) mg/dL Urine Protein (Negative) Urine Glucose (UA) (Negative) Urine Ketones (Negative) Urine Bacteria (None) /hpf Urine Mucus (None) /hpf Microbiology - Last 24 Hours (Table) 03/30/18 21:20 Urine Culture - Preliminary Urine,Catheterized 03/30/18 07:40 Blood Culture - Preliminary Blood No Growth after 24 hours Assessment and Plan Assessment: Impression: 1 acute hypoxic and hypercapnic respiratory failure secondary to acute exacerbation of COPD. 2 chronic obstructive lung disease, O2 dependent, prednisone dependent, and BiPAP dependent at home. 3 chronic alcoholism 4 acute hypertensive urgency remains on clevidipine, 4 mg/h, Norvasc was added, and we will likely discontinue clevidipine. 5 peripheral vessel occlusive disease 6 chronic anxiety/generalized anxiety disorder. Recommendation: Continue BiPAP, presently at 35% FiO2, IPAP of 14 and EPAP of 7. Continue bronchodilators as ordered, antibiotics, IV Solu-Medrol, continue alcohol withdrawal protocol, continue to address blood pressure, and hopefully wean off clevidipine. Continue to monitor the patient in the ICU, resume her home meds including theophylline, discussed with the patient and her son the CODE STATUS again, patient definitely would like to be DO NOT RESUSCITATE/DO NOT INTUBATE CODE STATUS. Prognosis of this of course guarded, and we will continue to monitor the patient in the ICU for the next 24 hours. Continue GI and DVT prophylaxis. All meds were reviewed. And her condition was addressed with her and her son and the nursing staff. Time with Patient: Less than 30
[2018-03-31 12:06] LABS: Glucose,Whole Blood 129 mg/dL (75-99)
[2018-03-31] MEDS: THIAMINE 100 MG TAB PO SCH ×2 (12:38→18:29)
[2018-03-31] MEDS: MULTIVITAMINS, THERA 1 EACH TAB PO SCH (12:39)
[2018-03-31 18:19] LABS: Glucose,Whole Blood 153 mg/dL (75-99)
--- NOTE | 2018-03-31 20:34 | P.PN ---
Subjective Progress Note Date: 03/31/18 Abena Pelaez is a debilitated 73-year-old white female with end-stage COPD she is currently in the ICU for case was discussed with her and her son at bedside patient's prognosis remains very poor she was currently getting a trial off BiPAP but is in acute respiratory failure and distress and we'll go back on currently will continue maximum ICU support and continued to discuss with family overall care. Objective - Vital Signs Vital signs: Vital Signs Temp 97.4 F L 03/31/18 16:00 Pulse 103 H 03/31/18 19:30 Resp 21 03/31/18 19:30 BP 165/89 03/31/18 03:00 Pulse Ox 98 03/31/18 19:30 Intake & Output 03/31/18 03/31/18 04/01/18 06:59 18:59 06:59 Intake Total 725.145 4384 75 Output Total 383 570 45 Balance -85.599 430 30 Weight 69.4 kg Intake: IV 222 900 75 .09 normal saline carrier 72 Sodium Chloride 0.9% 1, 150 900 75 000 ml @ 75 mls/hr IV . [id number] [facility] Rx#:[id number] Intake, IV Titration 75.401 100 Amount Clevidipine Butyrate 25 75.401 50 mg In Empty Bag 1 bag @ 1 MG/HR 2 mls/hr IV .Q24H [facility] Rx#:[id number] cefTRIAXone 1 gm In 50 Sodium Chloride 0.9% 50 ml @ 100 mls/hr IVPB Q24HR [facility] Rx#:[id number] Output: Urine 383 570 45 Other: Voiding Method Indwelling Catheter Indwelling Catheter ABP, PAP, CO, CI - Last Documented Arterial Blood Pressure 128/58 - Exam GENERAL: in apparent distress at the time of examination. Pleasant and cooperative but labored breathing is evident.. HEENT: Head is atraumatic, normocephalic. With steroid effects Pupils are equal , round, and reactive to light. Sclerae anicteric. Conjunctivae are clear. Mucus membranes of the mouth are dry. RESPIRATORY: Poor air exchange bilaterally with wheezing expiratory inspiratory and using accessory muscles. No chest wall tenderness is noted on palpation or with deep breathing. CARDIOVASCULAR: Regular rate and rhythm. S1 and S2 noted. No systolic or diastolic murmur auscultated. No JVD noted. No S3 or S4 noted. GASTROINTESTINAL: No distention noted. Abdomen soft and round. Normal active bowel sounds auscultated x 4 quadrants. No pain or tenderness noted upon palpation. INTEGUMENTARY: No cyanosis. No jaundice. No rashes noted. No cellulitis noted. EXTREMITIES: 2+ peripheral pulses. No evidence of peripheral edema. No calf tenderness noted. NEUROLOGIC: Cranial nerves II-XII intact. PSYCHIATRIC: Awake, alert, and oriented X 3. - Labs CBC & Chem 7: 03/31/18 03:55 03/31/18 03:55 Labs: Abnormal Lab Results - Last 24 Hours (Table) 03/30/18 03/30/18 03/31/18 Range/Units 21:06 21:20 03:55 WBC 17.2 H (3.8-10.6) k/uL RBC 3.41 L (3.80-5.40) m/uL MCV 111.0 H (80.0-100.0) fL Neutrophils # 15.9 H (1.3-7.7) k/uL Lymphocytes # 0.5 L (1.0-4.8) k/uL Sodium (137-145) mmol/L Chloride (98-107) mmol/L Carbon Dioxide (22-30) mmol/L BUN (7-17) mg/dL Glucose (74-99) mg/dL POC Glucose (mg/dL) 165 H (75-99) mg/dL Urine Protein 2+ H (Negative) Urine Glucose (UA) 3+ H (Negative) Urine Ketones 1+ H (Negative) Urine Bacteria Rare H (None) /hpf Urine Mucus Many H (None) /hpf 03/31/18 03/31/18 03/31/18 Range/Units 03:55 06:15 12:04 WBC (3.8-10.6) k/uL RBC (3.80-5.40) m/uL MCV (80.0-100.0) fL Neutrophils # (1.3-7.7) k/uL Lymphocytes # (1.0-4.8) k/uL Sodium 132 L (137-145) mmol/L Chloride 95 L (98-107) mmol/L Carbon Dioxide 32 H (22-30) mmol/L BUN 35 H (7-17) mg/dL Glucose 160 H (74-99) mg/dL POC Glucose (mg/dL) 155 H 129 H (75-99) mg/dL Urine Protein (Negative) Urine Glucose (UA) (Negative) Urine Ketones (Negative) Urine Bacteria (None) /hpf Urine Mucus (None) /hpf 03/31/18 Range/Units 18:17 WBC (3.8-10.6) k/uL RBC (3.80-5.40) m/uL MCV (80.0-100.0) fL Neutrophils # (1.3-7.7) k/uL Lymphocytes # (1.0-4.8) k/uL Sodium (137-145) mmol/L Chloride (98-107) mmol/L Carbon Dioxide (22-30) mmol/L BUN (7-17) mg/dL Glucose (74-99) mg/dL POC Glucose (mg/dL) 153 H (75-99) mg/dL Urine Protein (Negative) Urine Glucose (UA) (Negative) Urine Ketones (Negative) Urine Bacteria (None) /hpf Urine Mucus (None) /hpf Microbiology - Last 24 Hours (Table) 03/30/18 21:20 Urine Culture - Preliminary Urine,Catheterized 03/30/18 07:40 Blood Culture - Preliminary Blood No Growth after 24 hours Assessment and Plan Assessment: Acute respiratory failure requiring BiPAP Patient wishes to be a no CPR and no mechanical ventilation her prognosis is very poor at this time this has been discussed with her son who is at bedside in no appreciated by Dr. Jones television reporter. We'll continue to watch the next 24 hours patient may need hospice referral. Continue ICU support. (1) Bronchitis Current Visit: Yes Status: Acute Code(s): J40 - BRONCHITIS, NOT SPECIFIED ACUTE OR CHRONIC SNOMED Code(s): 62676682 (2) COPD exacerbation Current Visit: Yes Status: Acute Code(s): J44.1 - CHRONIC OBSTRUCTIVE PULMONARY DISEASE W (ACUTE) EXACERBATION SNOMED Code(s): 839885868 (3) Dehydration Current Visit: No Status: Acute Code(s): E86.0 - DEHYDRATION SNOMED Code(s ): 06066250 (4) Hyponatremia syndrome Current Visit: No Status: Acute Code(s): E87.1 - HYPO-OSMOLALITY AND HYPONATREMIA SNOMED Code(s): 1645501 (5) Weakness generalized Current Visit: No Status: Acute Code(s): R53.1 - WEAKNESS SNOMED Code(s): 95250058 (6) Panic attacks Current Visit: No Status: Chronic Priority: Medium Code(s): F41.0 - PANIC DISORDER [EPISODIC PAROXYSMAL ANXIETY] SNOMED Code(s): 581000284
[2018-03-31 20:35] LABS: Glucose,Whole Blood 146 mg/dL (75-99)
[2018-04-01 00:25] LABS: Glucose,Whole Blood 128 mg/dL (75-99)
[2018-04-01] MEDS: INSULIN ASPART (NovoLOG) 100 UNIT/ML VIAL SQ SCH ×5 (00:27→17:44)
[2018-04-01] MEDS: methylPREDNISolone SOD SUCCI 125 MG/2 ML VIAL IV SCH ×4 (00:28→17:15)
[2018-04-01] MEDS: LORazepam 2 MG/ML INJ IV PRN ×6 (00:55→19:22)
[2018-04-01 04:39] LABS: Basophils % (A) 0 %; Eosinophils % (A) 0 %; HGB 12.1 gm/dL (11.4-16.0); Hypochromasia Slight; Lymphocytes # (A) 0.6 k/uL (1.0-4.8); Lymphocytes % (A) 5 %; MCH 35.7 pg (25.0-35.0); MCHC 31.7 g/dL (31.0-37.0); MCV 112.5 fL (80.0-100.0); Macrocytosis Marked; Monocytes # (A) 0.5 k/uL (0-1.0); Monocytes % (A) 3 %; Neutrophils # (A) 12.2 k/uL (1.3-7.7); Neutrophils % (A) 91 %; Platelet Count 304 k/uL (150-450); RBC 3.38 m/uL (3.80-5.40); RDW 13.1 % (11.5-15.5); WBC 13.4 k/uL (3.8-10.6)
[2018-04-01 04:47] LABS: INR 0.9 (<1.2); Partial Thromboplastin Time 23.6 sec (22.0-30.0); Prothrombin Time 9.8 sec (9.0-12.0)
[2018-04-01 04:53] LABS: Anion Gap 6 mmol/L; Blood Urea Nitrogen 33 mg/dL (7-17); Calcium 9.8 mg/dL (8.4-10.2); Carbon Dioxide 34 mmol/L (22-30); Chloride 96 mmol/L (98-107); Glucose 145 mg/dL (74-99); Magnesium 2.2 mg/dL (1.6-2.3); Phosphorus 3.8 mg/dL (2.5-4.5); Potassium 4.8 mmol/L (3.5-5.1); Sodium 136 mmol/L (137-145)
[2018-04-01] MEDS: CLEVIDIPINE BUTYRATE 25 MG in EMPTY BAG 1 BAG IV SCH (05:01)
[2018-04-01 05:55] LABS: Glucose,Whole Blood 153 mg/dL (75-99)
[2018-04-01] MEDS: BUDESONIDE 1 MG/2 ML NEBU INHALATION SCH ×2 (07:31→20:16)
[2018-04-01] MEDS: IPRATROPIUM-ALBUTEROL 3 ML NEB INHALATION PRN ×4 (07:31→20:16)
[2018-04-01] MEDS: SODIUM CHLORIDE 0.9% 1,000 ML IV SCH (08:56)
[2018-04-01] MEDS: ESCITALOPRAM 10 MG TAB PO SCH (09:08)
[2018-04-01] MEDS: amLODIPine 5 MG TAB PO SCH (09:08)
[2018-04-01] MEDS: AZITHROMYCIN 500 MG TAB PO SCH (09:08)
[2018-04-01] MEDS: MONTELUKAST 10 MG TAB PO SCH (09:08)
[2018-04-01] MEDS: METOPROLOL TARTRATE 25 MG TAB PO SCH (09:09)
[2018-04-01] MEDS: THEOPHYLLINE 24 HOUR 400 MG CAP.ER.24H PO SCH (09:09)
[2018-04-01] MEDS: PANTOPRAZOLE 40 MG/10 ML VIAL IVP SCH (09:13)
[2018-04-01] MEDS: HEPARIN SODIUM,PORCINE 5,000 UNIT/ML 1 ML VIAL SQ SCH (09:14)
[2018-04-01] MEDS ORDERED: PROMETHAZ-COD 6.25-10 MG/5 ML 5 ML CUP PO PRN (09:16)
--- NOTE | 2018-04-01 09:21 | XR ---
EXAMINATION TYPE: XR chest 1V DATE OF EXAM: 04/01/2018 COMPARISON: Prior chest x-ray 03/31/2017 HISTORY: COPD, respiratory distress TECHNIQUE: Single frontal view of the chest is obtained. FINDINGS: Prominent lung volumes compatible with underlying COPD. There are cardiac leads and the pa tient is rotated. Heart size is stable. No pneumothorax or pleural effusion. No evident airspace dise ase. IMPRESSION: No acute process.
--- NOTE | 2018-04-01 11:30 | P.PN ---
Subjective Progress Note Date: 04/01/18 Principal diagnosis: Acute hypoxic and hypercapnic respiratory failure secondary to acute exacerbation of COPD. This is a 73-year-old female patient who follows with Dr. Way as her primary care physician. She has a past medical history of chronic hypoxic respiratory failure requiring oxygen /, chronic obstructive pulmonary disease, end-stage with an FEV1 value of 15% , hypertension, anxiety/depression, immunoglobulin deficiency with previous IVIG treatments, peripheral vascular disease, renal disease. This patient has a maintained on oxygen on a chronic basis, Milligrams of Prednisone a Daily Basis, Theophylline 400 Mg on a Daily Basis and She's Been Utilizing a BiPAP Device on and off for Chronic Dyspnea on Respiratory Failure. She Was Getting Progressively More Short of Breath Approximately Week Ago. She Contacted Our Office and She Was was given a course of amoxicillin. Nevertheless, she got worse and she end up coming to the hospital for acute respiratory failure. The patient was immediately placed on a BiPAP which is currently running at a pressure of 14/7 cm of water. She is also on FiO2 of 35%. Upon arrival to the emergency department, the patient was also noted to be hypertensive. Her initial blood pressure was 200/111. She was given labetalol and hydralazine IV and the most recent blood pressure is down to 160/96. She is a chronic alcohol drinker. She drinks beer and she takes 2 shots of whiskey on a daily basis. No clear signs of delirium tremens although she looks a bit tremulous along with increased shortness of breath. She is currently tolerating the BiPAP. Her blood gases showed a pH of 7.29 with a pCO2 of 71 and pO2 of 84 on the above-mentioned BiPAP setting. Chest x- ray shows hyperinflation. With regards at 16.1. EKG showing sinus tachycardia. There is evidence of biatrial enlargement. Right ventricle hypertrophy is also seen along with an old septal infarct as of daily basis. Patient was reevaluated today on 03/31/2018, remains in the ICU, remains on BiPAP with IPAP of 14 and EPAP of 7. Patient remains on bronchodilators, antibiotics, she is also on clevidipine drip at 4 mg per hour for elevated blood pressure. Feeling better, breathing easier. Less cough and less wheezing less shortness of breath. Labs were reviewed she has leukocytosis with WBC count of 17.2 hemoglobin is 11.9. Electrolytes are relatively normal BUN is 35 creatinine 0.53. Chest x-ray was reviewed and there is no evidence of infiltrate. Medications were reviewed, remains on Rocephin and Zithromax, she is on bronchodilators/DuoNeb, which is also on Pulmicort, overall, the patient is feeling better compared to how she felt upon presentation Reevaluated today on 04/01/2018, patient remains on BiPAP with the same settings as noted above. Remains on bronchodilators, antibiotics, steroids, ciwa protocol for alcohol withdrawal, has been intermittently on clevidipine. Patient is basically about the same as she was yesterday, no major change according to her. Seems to be a bit reluctant to go off the BiPAP, and I suggested we at least try a nasal cannula. CBC is normal basic metabolic profile is normal renal profile is normal. Chest x-ray on admission showed no evidence of active disease. Today I found out that the patient already discussed with her family that she would like to be placed hospice and she is seriously considering comfort care measures. I addressed this issue with the patient, and she is serious about hospice and comfort care measures. Patient seems to be well aware that her long-term prognosis is extremely poor and guarded considering his severe COPD. And she doesn't seem to be enjoying her quality of life. Objective - Vital Signs Vital signs: Vital Signs Temp 98.5 F 04/01/18 04:00 Pulse 85 04/01/18 11:00 Resp 17 04/01/18 11:00 BP 165/89 04/01/18 10:45 Pulse Ox 100 04/01/18 11:00 Intake & Output 03/31/18 04/01/18 04/01/18 18:59 06:59 18:59 Intake Total 1000 950.200 425 Output Total 570 555 210 Balance 430 395.200 215 Intake: IV 900 900 375 Sodium Chloride 0.9% 1, 900 900 375 000 ml @ 75 mls/hr IV . [id number] [facility] Rx#:[id number] Intake, IV Titration 100 50.200 50 Amount Clevidipine Butyrate 25 50 50.200 mg In Empty Bag 1 bag @ 1 MG/HR 2 mls/hr IV .Q24H [facility] Rx#:[id number] cefTRIAXone 1 gm In 50 50 Sodium Chloride 0.9% 50 ml @ 100 mls/hr IVPB Q24HR [facility] Rx#:[id number] Output: Urine 570 555 210 Other: Voiding Method Indwelling Catheter Indwelling Catheter Indwelling Catheter ABP, PAP, CO, CI - Last Documented Arterial Blood Pressure 136/70 - Exam Physical Exam: Revealed a 73-year-old female anxious, on BiPAP. 31/08. And 40% FiO2 Head: Atraumatic normocephalic. HEENT:[Neck is supple.] [No neck masses.] [No thyromegaly.] [No JVD.] Dry mucous membranes were noted. Chest: [Diminished breath sound bilaterally, rhonchi and wheezes noted also bilaterally.] Cardiac Exam: [Normal S1 and S2, no S3 gallop, no murmur.] Abdomen: [Soft, nontender, no megaly, no rebound, no guarding, normal bowel sounds.] Extremities: [No clubbing, no edema, no cyanosis.] Neurological Exam: [No focal neurologic deficit.] Skin: No rashes, dry skin and ecchymosis noted in forearms Psychiatric: Normal mood, affect and mental status examination. - Labs CBC & Chem 7: 04/01/18 04:06 04/01/18 04:06 Labs: Abnormal Lab Results - Last 24 Hours (Table) 03/31/18 03/31/18 03/31/18 Range/Units 12:04 18:17 20:33 WBC (3.8-10.6) k/uL RBC (3.80-5.40) m/uL MCV (80.0-100.0) fL MCH (25.0-35.0) pg Neutrophils # (1.3-7.7) k/uL Lymphocytes # (1.0-4.8) k/uL Sodium (137-145) mmol/L Chloride (98-107) mmol/L Carbon Dioxide (22-30) mmol/L BUN (7-17) mg/dL Creatinine (0.52-1.04) mg/dL Glucose (74-99) mg/dL POC Glucose (mg/dL) 129 H 153 H 146 H (75-99) mg/dL 04/01/18 04/01/18 04/01/18 Range/Units 00:23 04:06 04:06 WBC 13.4 H (3.8-10.6) k/uL RBC 3.38 L (3.80-5.40) m/uL MCV 112.5 H (80.0-100.0) fL MCH 35.7 H (25.0-35.0) pg Neutrophils # 12.2 H (1.3-7.7) k/uL Lymphocytes # 0.6 L (1.0-4.8) k/uL Sodium 136 L (137-145) mmol/L Chloride 96 L (98-107) mmol/L Carbon Dioxide 34 H (22-30) mmol/L BUN 33 H (7-17) mg/dL Creatinine 0.49 L (0.52-1.04) mg/dL Glucose 145 H (74-99) mg/dL POC Glucose (mg/dL) 128 H (75-99) mg/dL 04/01/18 Range/Units 05:52 WBC (3.8-10.6) k/uL RBC (3.80-5.40) m/uL MCV (80.0-100.0) fL MCH (25.0-35.0) pg Neutrophils # (1.3-7.7) k/uL Lymphocytes # (1.0-4.8) k/uL Sodium (137-145) mmol/L Chloride (98-107) mmol/L Carbon Dioxide (22-30) mmol/L BUN (7-17) mg/dL Creatinine (0.52-1.04) mg/dL Glucose (74-99) mg/dL POC Glucose (mg/dL) 153 H (75-99) mg/dL Microbiology - Last 24 Hours (Table) 03/30/18 07:40 Blood Culture - Preliminary Blood No Growth after 48 hours 03/30/18 21:20 Urine Culture - Preliminary Urine,Catheterized Assessment and Plan Assessment: Impression: 1 acute hypoxic and hypercapnic respiratory failure secondary to acute exacerbation of COPD. 2 chronic obstructive lung disease, O2 dependent, prednisone dependent, and BiPAP dependent at home. 3 chronic alcoholism 4 acute hypertensive urgency remains on clevidipine, 4 mg/h, Norvasc was added, and we will likely discontinue clevidipine. 5 peripheral vessel occlusive disease 6 chronic anxiety/generalized anxiety disorder. Recommendation: Continue BiPAP, presently at 35% FiO2, IPAP of 14 and EPAP of 7. Switch intermittently to nasal cannula if tolerates. Continue bronchodilators as ordered, antibiotics, IV Solu-Medrol, continue alcohol withdrawal protocol, continue to address blood pressure, medications will be adjusted accordingly. Continue to monitor the patient in the ICU, resume her home meds including theophylline, continue GI and DVT prophylaxis. Discussed the issue of hospice and comfort care with the patient, she is 100% for this approach, and apparently we are waiting to hear from other family members, and if they are all agreeable, we'll proceed with hospice consultation and comfort care measures. Time with Patient: Less than 30
[2018-04-01 12:01] LABS: Glucose,Whole Blood 141 mg/dL (75-99)
[2018-04-01] MEDS: MULTIVITAMINS, THERA 1 EACH TAB PO SCH (12:19)
[2018-04-01] MEDS: THIAMINE 100 MG TAB PO SCH ×2 (12:19→14:35)
[2018-04-01 17:42] LABS: Glucose,Whole Blood 168 mg/dL (75-99)
[2018-04-01 17:51] VITALS: RESP 30; TEMP 97.7
[2018-04-01 20:17] VITALS: PULSE 98
--- NOTE | 2018-04-01 21:24 | P.DS ---
Providers Date of admission: 03/30/18 09:23 Expected date of discharge: 04/01/18 Attending physician: King Way Consults: 03/30/18 17:26 Consult Physician Urgent Consulting Provider: Jamaal Webber Consult Reason/Comments: dyspnea Do you want consulting provider notified?: Already Contacted Primary care physician: King Way - Discharge Diagnosis(es) (1) Bronchitis Current Visit: Yes Status: Acute (2) COPD exacerbation Current Visit: Yes Status: Acute (3) Dehydration Current Visit: No Status: Acute (4) Hyponatremia syndrome Current Visit: No Status: Acute (5) Weakness generalized Current Visit: No Status: Acute (6) Panic attacks Current Visit: No Status: Chronic Priority: Medium Hospital Course: This a pleasant 73-year-old white female who was admitted with multiple complications stemming from respiratory failure due to end-stage COPD. She wishes to be a DO NOT RESUSCITATE with no intubation she was placed on multiple days of BiPAP and decision by family members is to make patient comfortable should be transferred to a friend's home for hospice which was previously arranged. Plan - Discharge Summary Discharge Rx Participant: Yes New Discharge Prescriptions: No Action Metoprolol Tartrate [Lopressor] 25 mg PO BID Multivitamin [Multivitamins] 1 tab PO DAILY Montelukast [Singulair] 10 mg PO DAILY ALPRAZolam [Xanax] 0.5 mg PO TID PRN PRN Reason: Anxiety Escitalopram [Lexapro] 10 mg PO DAILY tab Naproxen Sodium [Aleve] 440 mg PO Q12HR Acetaminophen Tab [Tylenol] 650 mg PO Q6HR PRN #0 tab PRN Reason: Fever And/ Or Pain Amoxicillin 500 mg PO TID methylPREDNISolone Dose Pack [Medrol Dose Pack] See Taper PO DAILY Rosuvastatin [Crestor] 10 mg PO HS Theophylline Anhydrous [Theophylline] 400 mg PO DAILY Discharge Medication List Metoprolol Tartrate [Lopressor] 25 mg PO BID 06/17/13 [History] Montelukast [Singulair] 10 mg PO DAILY 06/17/13 [History] Multivitamin [Multivitamins] 1 tab PO DAILY 06/17/13 [History] ALPRAZolam [Xanax] 0.5 mg PO TID PRN 06/22/13 [History] Escitalopram [Lexapro] 10 mg PO DAILY tab 08/31/14 [Rx] Naproxen Sodium [Aleve] 440 mg PO Q12HR 10/06/15 [History] Acetaminophen Tab [Tylenol] 650 mg PO Q6HR PRN #0 tab 10/15/15 [Rx] Amoxicillin 500 mg PO TID 03/30/18 [History] Rosuvastatin [Crestor] 10 mg PO HS 03/30/18 [History] Theophylline Anhydrous [Theophylline] 400 mg PO DAILY 03/30/18 [History] methylPREDNISolone Dose Pack [Medrol Dose Pack] See Taper PO DAILY 03/30/18 [ History] Follow up Appointment(s)/Referral(s): King Way DO [Primary Care Provider] - As Needed [facility] Visiting Nurse, [NON-STAFF] - 1-2 Days Discharge Disposition: HOME WITH HOSPICE
--- NOTE | 2018-04-02 11:25 | CDI ---
Documentation Clarification Form Date: 04/02/18 From: Fatoumata Ruiz Phone: If you have a question regarding this query, please contact Sena Chase at [phone] between 8am and 5pm. Admit Date: 03/30/2018 9:23:00 AM Patient Name: Margi Pelaez Visit Number: [id number] Discharge Date: 04/01/2018 9:22:00 PM ATTENTION: The Clinical Documentation Specialists (CDI) and [facility] Coding Staff appreciate your assistance in clarifying documentation. Please respond to the clarification below the line at the bottom and electronically sign. The CDI & [facility] Coding staff will review the response and follow-up if needed. Please note: Queries are made part of the Legal Health Record. If you have any questions, please contact the author of this message via ITS. Dr. King Way Acute respiratory failure is documented in the pulmonary consult note and progress notes and in your 03/31 progress note. Documentation in the H&P stated that the patient went into acute respiratory distress while still in the ED. Pulmonary consult stated that the patient came to the hospital for acute respiratory failure. History/Risk Factors: The patient has a history of chronic respiratory failure , COPD end stage, hypertension and alcoholism. Patient has a history of smoking. Clinical Indicators: Shortness of breath, diminished breath sounds, tachycardia, tachypnea, accessory muscle use per 03/31 progress note respiratory exam. Vital signs on admission: T. 99.1, P. 105, R. 28, BP 212/111, Pulse Ox. 96 on admit with 4 L O2 then dropped to 94 5 hours later then down to 88 2 hours after that. ABGs: pH 7/29, pCO2 71, pO2 84, HCO3 34, Total CO2 37 Treatment: Admitted to ICU, O2 per NC at 4 lpm, changed to BiPAP 4 hours after admission. Definition of Present on Admission (POA): A diagnosis present at the time the order for admission to inpatient status was written. For each diagnosis, documentation must be clear to determine if the condition was present at the time of the patients inpatient admission or developed during the hospital stay. Please clarify if acute respiratory failure was POA: ____Y = Yes, the condition was present at the time of the order for inpatient admission. ____N = No, the condition was not present at the time of the order for inpatient admission. ____W = Clinically undetermined if the condition was present at the time of the order for inpatient admission. MTDD
== END 2018-04-01 21:22 | disposition hospice, home (50) | DRG 189 ==
LOC: EC 06:18 → 3SCARD 09:23 → 2SICU 16:58
PROVIDERS: ADMIT Family Medicine; ATTEND Family Medicine
PROC: 5A09457 Assistance with Respiratory Ventilation, 24-96 Consecutive Hours, Continuous Positive Airway Pressure (ICD-10-PCS; principal; 2018-03-30)
DX: J96.21 Acute and chronic respiratory failure with hypoxia (principal); E87.1 Hypo-osmolality and hyponatremia; F10.239 Alcohol dependence with withdrawal, unspecified; J44.1 Chronic obstructive pulmonary disease with (acute) exacerbation; D84.9 Immunodeficiency, unspecified; R64 Cachexia; E86.0 Dehydration; I11.9 Hypertensive heart disease without heart failure; Z51.5 Encounter for palliative care; Z66 Do not resuscitate; D72.829 Elevated white blood cell count, unspecified; E78.5 Hyperlipidemia, unspecified; F32.9 Major depressive disorder, single episode, unspecified; F41.0 Panic disorder [episodic paroxysmal anxiety]; I16.0 Hypertensive urgency; I25.2 Old myocardial infarction; I49.3 Ventricular premature depolarization; I73.00 Raynaud's syndrome without gangrene; J96.22 Acute and chronic respiratory failure with hypercapnia; I73.9 Peripheral vascular disease, unspecified; J20.9 Acute bronchitis, unspecified; Z79.52 Long term (current) use of systemic steroids; Z79.899 Other long term (current) drug therapy; Z87.891 Personal history of nicotine dependence; Z99.81 Dependence on supplemental oxygen; Z90.49 Acquired absence of other specified parts of digestive tract; Z80.52 Family history of malignant neoplasm of bladder; Z82.49 Family history of ischemic heart disease and other diseases of the circulatory system; Z82.5 Family history of asthma and other chronic lower respiratory diseases
CPT/HCPCS: 36415; 36600; 71045; 71046; 80048; 80053; 81001; 82550; 82553; 82805; 83605; 83735; 83880; 84100; 84484; 85025; 85610; 85730; 87040; 87086; 93005; 94640; 94660; 96365; 96366; 96372; 96375; 96376; 99291